=== PATIENT | female | born 1975 | race Native Hawaiian/Other Pacific Islander ===

== ENCOUNTER 2021-08-10 17:21 | Emergency (ER) | payer OTHER ==
[~2021-08-10] VITALS: Ht 162.6 cm; Wt 69.9 kg
[2021-08-10 18:18] LABS: POTASSIUM 4.2 mmol/L (3.6-5.2)
[2021-08-10 18:37] LABS: PLATELET COUNT 245 K/uL (152-353)
[2021-08-10 19:34] VITALS: BP 134/83; TEMP 98.8
== END 2021-08-10 19:34 | disposition home or self-care (01) ==
LOC: ED 17:21
PROVIDERS: Hospitalist
DX: K59.09 Other constipation (principal); R10.84 Generalized abdominal pain; R11.2 Nausea with vomiting, unspecified
CPT/HCPCS: 36415; 80053; 80320; 83690; 85027; 96360; 96374; 96375; 99284; J1200; J2405